=== PATIENT | male | born 1990 | race Caucasian/White ===

== ENCOUNTER 2019-07-20 18:25 | Emergency (ER) | payer OTHER, SELFPAY ==
[2019-07-20 18:30] VITALS: BP 158/102; PULSE 89; RESP 20; TEMP 36.6; O2SAT 99
--- NOTE | 2019-07-20 18:38 | ED.WEAKNESS ---
HPI - Weakness General Chief complaint: Weakness Stated complaint: weak and wobbly History of Present Illness HPI Narrative: This is a 29 year old male that comes in with weakness for the past three weeks after he started bactrim on 06/27 for a infection on his right arm he started throwing up and having diarrhea. Patient states it has progressively gotten worse and he is having diarrhea . Patient states that he is having some shaking going on and he does not feel right and feels like he about to fall on the floor. Related Data Home Medications Medication Instructions Recorded Confirmed No Home Medications 07/20/19 07/20/19 Allergies Allergy/AdvReac Type Severity Reaction Status Date / Time No Known Allergies Allergy Verified 07/20/19 18:46 Review of Systems Review of Systems: Narrative: CONSTITUTIONAL: Denies fever, reports chills, or sweats. Weakness and fatigue EYES: Denies visual changes, redness, or discharge. ENT: Denies rhinorrhea, congestion, sore throat, or otalgia. CARDIOVASCULAR:Denies chest pain, palpitations, or edema. RESPIRATORY: Denies cough or dyspnea. GASTROINTESTINAL: Reports abdominal pain, nausea, vomiting, or diarrhea. GENITOURINARY: Denies dysuria or hematuria. SKIN:[Denies rash or itching. MUSCULOSKELETAL:Denies back pain, joint pain, or myalgia. NEUROLOGIC: Denies headache, numbness, or weakness. PSYCHIATRIC:Denies anxiety or depression PMFSH Comments At time as signature, I have reviewed and agree with nursing past medical, social, surgical and family history. Please see nursing chart for further information. There is no relevant family history pertinent to the presenting complaint. Exam Narrative: Exam Narrative: GENERAL: Pale disheveled shivering HEAD:Normocephalic, atraumatic. EYES: PERRLA and EOMI. ENT: Nares clear, no rhinorrhea or epistaxis. Mucous membranes moist. NECK: Supple. CHEST: Clear to auscultation. No respiratory distress. HEART: Regular rate and rhythm. No murmur heard. Normal peripheral pulses. ABDOMEN: Soft, nontender, nondistended, normal active bowel sounds. EXTREMITIES: Normal range of motion. No edema. SKIN: Warm, dry, no rash. NEURO: No focal deficits. Alert and oriented x3. Patient denies any diabetes, or recreational drugs denies hypertension states he just feels weak with some dizziness nausea vomiting and diarrhea Your blood pressure was elevated in the clinic today, I feel that this is due to your acute illness rather than essential hypertension. please follow-up with your regular doctor for further evaluation and monitor for evaluation of hypertension Please ALFIE schedule a followup visit with your personal physician with in the next 1-4 weeks for further evaluation and treatment. Also, ask your personal physician to assist you regarding blood pressure. Even blood pressure exceeding 120/80 may indicate pre-hypertension. If your symptoms persist, change or worsen significantly before you can contact your personal physician then please, without delay, go to the emergency department for further evaluation. Course Course Emergency Course: Patient is aware of diagnosis, understands and agrees to treatment plan. Anticipatory guidance given. Patient agrees to follow-up as directed and is aware of reasons to seek care at the emergency department. Transfer Transfered to: [facility] Transportation: Other (Personal vehicle) Transfer rationale: Higher acuity of care patient needs some labs Accepting physician: Shirley NAIK for ER physician MDM - Weakness Differential Diagnosis Differential diagnosis: Likely anemia, hypoglycemia (Blood sugar is 92), hypothyroidism, sepsis and dehydration Discharge Plan Discharge Clinical Impression: Weakness Nausea & vomiting Qualifiers: Vomiting type: unspecified Vomiting Intractability: unspecified Qualified Code(s): R11.2 - Nausea with vomiting, unspecified Hypertension Qualifiers: Hypertension type: unsp
[2019-07-20 18:45] LABS: Glucose Point of Care 92 (65-105)
== END 2019-07-20 19:00 | disposition short-term general hospital (02) ==
PROVIDERS: Emergency Provider Nurse Practitioner Family
DX: R53.1 Weakness (principal); R11.2 Nausea with vomiting, unspecified; I10 Essential (primary) hypertension
CPT/HCPCS: 81003; 99213; G0463